=== PATIENT | female | born 2000 | race Caucasian/White ===

== ENCOUNTER 2020-11-21 03:14 | Emergency (ER) | payer OTHER ==
[~2020-11-21] VITALS: Ht 152.4 cm; Wt 45.4 kg
[2020-11-21 03:20] VITALS: BP 144/79
[2020-11-21] MEDS ORDERED: MUPIROCIN 2% OINT 22 GM (BACTROBAN) TUBE ONE (03:33)
[2020-11-21] MEDS ORDERED: RX-MUPIROCIN (BACTROBAN) 2% OINT 22 GM TUBE TOP STA (03:43)
--- NOTE | 2020-11-21 03:48 | ED GU-Female ---
General Stated Complaint: VAGINAL LACERATION / BLEEDING Source: patient History of Present Illness Date Seen by Provider: Nov 21, 2020 Time Seen by Provider: 03:25 Initial Comments PT ARRIVES VIA POV FROM HOME STATES SHE WAS HAVING NORMAL VAGINAL INTERCOURSE, AND HAS LACERATIONS TO EXTERNAL VAGINAL/GENITAL AREA WITH BLEEDING AND PAIN OCCURRED AT 0300 THIS MORNING\\ HAS NOT TAKEN ANYTHING FOR PAIN NO HISTORY OF SIMILAR LMP 1 1/2 MONTHS AGO. HAD NEGATIVE TEST YESTERDAY. IS ON OCP'S. DENIES ANY MISSED DOSES OF PILLS NO COVID SYMPTOMS OR KNOWN EXPOSURE PCP: [facility] Allergies and Home Medications Allergies Coded Allergies: No Known Drug Allergies (Unverified , 11/21/20) Patient Home Medication List Home Medication List Reviewed: Yes Review of Systems Review of Systems Constitutional: no symptoms reported Genitourinary: see HPI Skin: see HPI Past Rnhhnax-Bmhruv-Dpqrfj Hx Past Med/Social Hx: Reviewed and Corrections made Patient Social History Alcohol Use: Rarely Uses Drug of Choice: DENIES Smoking Status: Current Everyday Smoker (1 PPD PLUS VAPES) Type Used: Cigarettes, Electronic/Vapor Past Medical History Surgeries: No Respiratory: No Cardiac: No Neurological: No : No Reproductive Disorders: No Genitourinary: No Gastrointestinal: No Musculoskeletal: No Endocrine: No HEENT: No Cancer: No Psychosocial: No Integumentary: No Blood Disorders: No Physical Exam Vital Signs Vital Signs - First Documented 11/21/20 03:20 Temp 36.6 Pulse 67 Resp 16 B/P (MAP) 144/79 (100) Pulse Ox 100 O2 Delivery Room Air Capillary Refill : Height, Weight, BMI Height: '" Weight: lbs. oz. kg; BMI Method: General Appearance: WD/WN, no apparent distress Genital/Rectal: other (BILATERAL SUPERFICIAL 2 1/2 CM LACERATIONS ON EXTERNAL /LATERAL ASPECT OF LABIA MINORA. NO ACTIVE BLEEDING AT THIS TIME. SOME MILD GENERALIZED EDEMA OF LABIA MINORA. VAGINA AND CERVIX APPEAR NORMAL. NO BRUISING TO AREA. ) Progress/Results/Core Measures Suspected Sepsis SIRS Temperature: Pulse: Respiratory Rate: Blood Pressure / Mean: Results/Orders Lab Results Laboratory Tests Test 11/21/20 03:40 Range/Units Urine Color YELLOW Urine Clarity CLEAR Urine pH 6.5 5-9 Urine Specific [place] >=1.030 1.016-1.022 Urine Protein 2+ H NEGATIVE Urine Glucose (UA) NEGATIVE NEGATIVE Urine Ketones 1+ H NEGATIVE Urine Nitrite NEGATIVE NEGATIVE Urine Bilirubin 1+ H NEGATIVE Urine Urobilinogen 0.2 < = 1.0 MG/DL Urine Leukocyte Esterase NEGATIVE NEGATIVE Urine RBC (Auto) 3+ H NEGATIVE Urine RBC 50-100 H /HPF Urine WBC NONE /HPF Urine Squamous Epithelial Cells 0-2 /HPF Urine Crystals NONE /LPF Urine Bacteria NEGATIVE /HPF Urine Casts NONE /LPF Urine Mucus MODERATE H /LPF Urine Culture Indicated NO Urine Test NEGATIVE NEGATIVE My Orders Orders - SHERRON RUTLEDGE DO Hcg,Qualitative Urine (11/21/20 03:29) Ua Culture If Indicated (11/21/20 03:29) Straight Cath For Spec.-Adult (11/21/20 03:29) Mupirocin Ointment (Bactroban Ointment (11/21/20 03:33) Rx-Mupirocin 2% Oint (Rx-Bactroban) (11/21/20 03:43) Urine Bedside (11/21/20 04:16) Vital Signs/I&O 11/21/20 03:20 Temp 36.6 Pulse 67 Resp 16 B/P (MAP) 144/79 (100) Pulse Ox 100 O2 Delivery Room Air Capillary Refill : Departure Impression Primary Impression: SUPERFICIAL LABIAL LACERATIONS Disposition: 01 HOME, SELF-CARE Condition: Stable Departure-Patient Inst. Referrals: STEFANY LEWIS MD [facility] [place] Patient Instructions: How to Do a Sitz Bath, Vulvar Pain Add. Discharge Instructions: WARM SITZ BATHS 3-4 TIMES A DAY NEEDED FOR COMFORT APPLY BACTROBAN OINTMENT TO AFFECTED AREAS 3-4 TIMES A DAY ICE PACKS TO AREA AT 20 MINUTE INTERVALS TYLENOL AND MOTRIN NEEDED FOR PAIN NO INTERCOURSE OF ANY KIND UNTIL CLEARED BY FOLLOW UP WITH [facility] OR [facility] [place] IN 2-3 DAYS FOR FURTHER CARE SHERRON RUTLEDGE DO Nov 21, 2020 03:47
[2020-11-21 04:23] LABS: BILIRUBIN,URINE 1+ (NEGATIVE); CLARITY,URINE CLEAR; COLOR,URINE YELLOW; GLUCOSE, URINE (UA) NEGATIVE (NEGATIVE); KETONES,URINE 1+ (NEGATIVE); LEUKOCYTE ESTERASE ,URINE NEGATIVE (NEGATIVE); NITRITE,URINE NEGATIVE (NEGATIVE); PH,URINE 6.5 (5-9); PROTEIN,URINE 2+ (NEGATIVE)
[2020-11-21 04:24] LABS: BACTERIA,URINE NEGATIVE /HPF; RBC,URINE 50-100 /HPF; SQUAMOUS EPITHELIAL CELL,UR 0-2 /HPF
== END 2020-11-21 04:29 | disposition home or self-care (01) ==
LOC: ER 03:18
DX: N90.89 Other specified noninflammatory disorders of vulva and perineum (principal); F17.210 Nicotine dependence, cigarettes, uncomplicated; F17.290 Nicotine dependence, other tobacco product, uncomplicated; I10 Essential (primary) hypertension; Z32.02 Encounter for pregnancy test, result negative
CPT/HCPCS: 81000; 84703; 99283

== ENCOUNTER → 2020-12-21 | Outpatient (CLI) | payer OTHER | LOC: CARD 09:13 | PROVIDERS: ATTEND Internal Medicine | DX: I08.0 Rheumatic disorders of both mitral and aortic valves (principal) | CPT/HCPCS: 93306 ==

== ENCOUNTER → 2021-03-28 | Outpatient (CLI) | payer OTHER ==
[~2021-03-28] MED LIST: CATHETER FLUSH 10 ML SYR IV PRN; HOLD METFORMIN - RECEIVED CONTRAST 20 ML VIAL IV SCH; IOHEXOL 350 MG/ML 100 ML (OMNIPAQUE 350) VIAL IV ONE; NS 100 ML (IVPB) BAG IV ONE
--- NOTE | 2021-03-28 14:14 | Diagnostic Imaging Report ---
EXAMINATION: CT angiography of the chest. TECHNIQUE: Contrast enhanced thin section helical images were obtained through the chest with intravenous contrast timed for the optimal opacification of the arterial structures per CTA protocol. Post-processing, reconstructions and interpretation of angiographic images of the vessels was performed. 3D MIP reconstructions were performed and reviewed. All CT scans use one or more of the following dose optimizing techniques: Automated exposure control, MA and/or KvP adjustment based on a patient size and exam type, or iterative reconstruction. HISTORY: Elevated D-dimer. COMPARISON: None available. FINDINGS: There is no pulmonary embolism. There is no edema or pneumonia. No pleural effusion. No pneumothorax. No suspicious nodules. There is no axillary or supraclavicular lymphadenopathy. There is no mediastinal lymphadenopathy. Heart size is normal. There are no coronary artery calcifications. No pericardial effusion. Aorta is normal in caliber. Limited views of the upper abdomen are unremarkable. There are no suspicious osseous lesions. IMPRESSION: 1. No pulmonary embolism. Dictated by: Dictated on workstation # [id number]
== END ==
LOC: RAD 12:28
PROVIDERS: ATTEND Nurse Practitioner Family
DX: R79.89 Other specified abnormal findings of blood chemistry (principal); R07.9 Chest pain, unspecified
CPT/HCPCS: 71275

== ENCOUNTER → 2021-11-30 | Outpatient (CLI) | payer OTHER ==
[2021-11-30 15:28] VITALS: BP 136/78
--- NOTE | 2021-11-30 15:45 | Cardiology Stress Test Report ---
Stress Test Report Date of Procedure/Referring: Date of Procedure: Nov 30, 2021 PCP Jarocho Zelaya MD Admitting Physician No,Local Physician Indications: CP Baseline Heart Rate: 78 Baseline Blood Pressure: Blood Pressure Systolic: 136 Blood Pressure Diastolic: 78 Baseline EKG: Baseline EKG: NSR Summary/Conclusion: Summary: In summary, the patient started exercising with a baseline heart rate, blood pressure and EKG mentioned above Patient was able to exercise for a total of 11 minutes on Mayur protocol, METs 12.1 Maximum heart rate 183 Maximum blood pressure 173/67 Stress EKG, Minimal nondiagnostic changes Recovery EKG , Return to baseline Conclusion: 1. Good exercise tolerance for a total of 11 minutes on Mayur protocol, 12.1 METs, achieving 91 percent of maximum expected heart rate 2. Minimal nondiagnostic EKG changes with exercise returned to baseline during recovery 3. No arrhythmia was noted JAROCHO ZELAYA MD Nov 30, 2021 15:45
== END ==
LOC: CARD 14:00
PROVIDERS: ATTEND Internal Medicine Cardiovascular Disease
DX: I35.1 Nonrheumatic aortic (valve) insufficiency (principal); I10 Essential (primary) hypertension; I25.10 Atherosclerotic heart disease of native coronary artery without angina pectoris
CPT/HCPCS: 93017; 93306

== ENCOUNTER 2021-12-07 10:30 | Outpatient (CLI) | payer OTHER ==
[~2021-12-07] VITALS: Ht 149.9 cm; Wt 45.0 kg
[2021-12-07] VITALS (25 sets, daily range): BP systolic 102–140; BP diastolic 56–89
[~2021-12-07 10:30] MED LIST changes: +ATROPINE INJECTION 1 MG/10 ML SYR (ABBOTT) ONE; -CATHETER FLUSH 10 ML SYR IV PRN; -HOLD METFORMIN - RECEIVED CONTRAST 20 ML VIAL IV SCH; -IOHEXOL 350 MG/ML 100 ML (OMNIPAQUE 350) VIAL IV ONE; -NS 100 ML (IVPB) BAG IV ONE; +NS IV 1000 ML 1,000 ML ONE
[2021-12-07] MEDS ORDERED: NS IV 1000 ML 1,000 ML IV SCH (11:15)
--- NOTE | 2021-12-07 11:17 | Cardiology Tilt Table Test ---
Cardiology-Tilt Table Test Tilt Table Test Date 12/07/21 Baseline Vitals Vital Signs Date Time Temp Pulse Resp B/P (MAP) Pulse Ox O2 Delivery O2 Flow Rate FiO2 12/07/21 10:23 71 16 140/89 (106) 100 Vital Signs VS - Last 72 Hours, by Label 12/07/21 12/07/21 12/07/21 12/07/21 10:23 10:25 10:26 10:27 Pulse 71 81 79 77 Resp 16 B/P (MAP) 140/89 (106) 128/78 (95) 127/86 (100) 139/85 (103) Pulse Ox 100 100 100 99 12/07/21 12/07/21 12/07/21 12/07/21 10:28 10:29 10:30 10:31 Pulse 74 80 75 80 B/P (MAP) 124/77 (93) 128/81 (97) 130/81 (97) 123/87 (99) Pulse Ox 100 99 12/07/21 12/07/21 12/07/21 12/07/21 10:32 10:33 10:34 10:36 Pulse 79 73 68 75 B/P (MAP) 135/87 (103) 134/82 (99) 137/75 (95) 140/87 (104) Pulse Ox 99 99 98 12/07/21 12/07/21 12/07/21 12/07/21 10:37 10:38 10:39 10:40 Pulse 81 90 87 110 B/P (MAP) 122/74 (90) 121/73 (89) 116/85 (95) Pulse Ox 98 12/07/21 12/07/21 12/07/21 12/07/21 10:41 10:43 10:44 10:45 Pulse 114 108 110 100 B/P (MAP) 120/77 (91) 112/73 (86) 104/70 (81) 107/78 (88) Pulse Ox 96 98 12/07/21 12/07/21 12/07/21 12/07/21 10:46 10:47 10:49 10:50 Pulse 96 86 105 100 B/P (MAP) 112/73 (86) 118/64 (82) 115/68 (84) Pulse Ox 98 98 97 97 4/6/22 4/6/22 4/6/22 10:52 10:53 10:54 Pulse 96 84 102 B/P (MAP) 105/75 (85) 109/58 (75) 102/56 (71) Pulse Ox 97 98 Patient was tilted to 75 degrees for [10] minutes, then returned to supine position, given [2] sublingual nitroglycerin tablets, then tilted again to 75 degrees for [15] minutes. During test, patient was: asymptomatic In Conclusion;: Negative Tilt Table Test Negative tilt table test. Patient instructed to continue with increased fluid and salt intake. Will see her for follow up in our clinic in 2 months. This is Татьяна King PA-C, as a scribe for Dr. Zelaya. ТАТЬЯНА SORIANO Dec 07, 2021 11:17 JAROCHO ZELAYA MD Dec 07, 2021 12:46
== END 2021-12-07 11:05 | disposition home or self-care (01) ==
LOC: CARD 10:30
PROVIDERS: ATTEND Internal Medicine Cardiovascular Disease
DX: R07.9 Chest pain, unspecified (principal); R55 Syncope and collapse
CPT/HCPCS: 93660